=== PATIENT | female | born 1970 ===

== ENCOUNTER 2017-11-11 13:17 | Outpatient (CLI) | payer OTHER | END 2017-11-11 13:30 | disposition home or self-care (01) | LOC: RAD 13:17 | DX: M54.2 Cervicalgia (principal); M25.511 Pain in right shoulder; M25.512 Pain in left shoulder ==

== ENCOUNTER 2018-05-12 16:20 | Outpatient (CLI) | payer OTHER | END 2018-05-14 14:51 | disposition home or self-care (01) | LOC: TOM 16:20 | DX: J32.0 Chronic maxillary sinusitis (principal); J34.2 Deviated nasal septum; M48.02 Spinal stenosis, cervical region; M54.2 Cervicalgia; M54.12 Radiculopathy, cervical region ==

== ENCOUNTER → 2020-06-25 | Outpatient (CLI) | payer OTHER | END | disposition home or self-care (01) | LOC: TOM 11:48 | PROVIDERS: ATTEND Otolaryngology | DX: J32.8 Other chronic sinusitis (principal) ==

== ENCOUNTER 2022-10-07 15:57 | Outpatient (CLI) | payer OTHER | END 2022-10-08 15:32 | disposition home or self-care (01) | LOC: RAD 15:57 | DX: J45.901 Unspecified asthma with (acute) exacerbation (principal); J18.9 Pneumonia, unspecified organism ==

== ENCOUNTER 2023-10-29 14:04 | Outpatient (CLI) | payer OTHER | END 2023-10-29 14:26 | disposition home or self-care (01) | LOC: SONOGRAMA 14:04 | DX: R10.11 Right upper quadrant pain (principal); R10.0 Acute abdomen ==